=== PATIENT | female | born 1965 | race American Indian/Alaskan Native ===

== ENCOUNTER 2018-10-07 09:28 | Outpatient (CLI) | payer MEDICARE, OTHER | END 2018-10-07 09:29 | disposition home or self-care (01) | LOC: C.RADH 09:28 | DX: J45.40 Moderate persistent asthma, uncomplicated (principal); I10 Essential (primary) hypertension ==

== ENCOUNTER 2018-12-08 09:45 | Outpatient (CLI) | payer MEDICARE, OTHER | END 2018-12-08 09:46 | disposition home or self-care (01) | LOC: C.CTH 09:45 ==

== ENCOUNTER 2018-12-25 09:14 | Outpatient (CLI) | payer MEDICARE, OTHER | END 2018-12-25 09:15 | disposition home or self-care (01) | LOC: C.LAB 09:14 | DX: I10 Essential (primary) hypertension (principal); F11.21 Opioid dependence, in remission; F43.23 Adjustment disorder with mixed anxiety and depressed mood; N18.3 Chronic kidney disease, stage 3 (moderate); E78.2 Mixed hyperlipidemia; J45.30 Mild persistent asthma, uncomplicated; Z68.31 Body mass index [BMI] 31.0-31.9, adult; Z12.31 Encounter for screening mammogram for malignant neoplasm of breast ==

== ENCOUNTER 2019-02-10 10:03 | Outpatient (CLI) | payer MEDICARE, OTHER, MEDICAID | END 2019-02-10 10:04 | disposition home or self-care (01) | LOC: C.MAMMO 10:04 ==

== ENCOUNTER 2019-02-11 07:28 | Outpatient (CLI) | payer MEDICARE, OTHER | END 2019-02-11 07:29 | disposition home or self-care (01) | LOC: C.RADIC 07:28 | DX: R80.9 Proteinuria, unspecified (principal); H61.21 Impacted cerumen, right ear; F11.21 Opioid dependence, in remission; R73.03 Prediabetes ==